=== PATIENT | male | born 1970 | race Hispanic/Latino ===

== ENCOUNTER 2024-08-28 12:34 | Emergency (ER) | payer SELFPAY ==
[~2024-08-28] VITALS: Ht 167.6 cm; Wt 72.6 kg
[2024-08-28] MEDS: ketOROlac 30MG VIAL (30MG/ML) IM ONE (13:27)
--- NOTE | 2024-08-28 13:40 | HMCIMG ---
ELBOW COMP 3+VWS RT HISTORY: Elbow pain COMPARISON: None TECHNIQUE: 3 images of the right elbow were obtained. FINDINGS: There is no acute displaced fracture or dislocation. There is soft tissue swelling. Degenerative changes are seen. IMPRESSION: 1. Findings as described above.
--- NOTE | 2024-08-28 13:47 | ERN ---
General Chief Complaint: Elbow Problem Stated Complaint: ELBOW SWELLING Time Seen by MD: 12:36 Source: patient History of Present Illness Initial Comments Patient is a 54-year-old gentleman coming in with right elbow pain. Patient states he noticed it a couple of days ago mild redness and warmth at the right elbow region. He states he does not remember hitting it. Allergies: Coded Allergies: No Known Drug Allergies (Unverified Allergy, Unknown, 08/28/24) Past Medical History Past Medical History: No Pertinent History Past Surgical History: None ROS Dictation CONSTITUTIONAL: No chills, no fever, no weakness, no diaphoresis, no malaise. HEAD/FACE: No signs of trauma. EENT: No eye pain, no blurred vision, no tearing, no double vision, no ear pain, no ear discharge, no nose pain, no nasal congestion, no throat pain, no throat swelling, no mouth pain. RESPIRATORY: No cough, no orthopnea, no SOB, no stridor, no wheezing. CARDIOVASCULAR: No chest pain, no edema, no palpitations, no syncope. GASTROINTESTINAL/ABDOMINAL: No abdominal pain, no constipation, no diarrhea, no nausea, no vomiting. GENITOURINARY: No abnormal discharge, no dysuria, no frequent urination, no hematuria. No complaints of pain in the genitals. MUSCULOSKELETAL: No back pain, no gout, no joint pain, no joint swelling, no muscle pain, no muscle stiffness, no neck pain. INTEGUMENTARY: No change in color, no change in hair/nails, no dryness, no lesion, no lumps, no rash. NEUROLOGICAL/PSYCH: No anxiety, not depressed, no emotional problem, no headache, no numbness, no pre-existing deficit, no history of seizures, no tremors, no weakness. HEMATOLOGIC/LYMPHATIC: Not anemic, no history of blood clots, no apparent bleeding, no bruising, glands not swollen. All Systems Negative, Except as Noted. Physical Exam Physical Exam Dictation VITAL SIGNS: Reviewed. GENERAL APPEARANCE: Alert, oriented x3, no acute distress, obese. HEAD AND FACE: Non-traumatic. EYES: PERRL, pink conjunctivas, eyelid no trauma, anterior chamber clear. EARS: Pinnas intact and no signs of trauma or erythema. Ear canals clear and no discharge. TMs no erythema. NOSE: No discharge, no bleeding. OROPHARYNX: Mouth normal, teeth no caries, tongue pink. Pharynx clear, no erythema. Tonsils no exudates, no abscesses noted. Mucous membrane moist. NECK: Supple, non-tender, no thyromegaly, no masses, no JVD, no bruits. BREAST: Deferred. CHEST: No tenderness, no crepitus, no paradoxical movement, no retractions. LUNGS: Clear, well-ventilated, symmetric, no rales, no wheezing, no rhonchi, no stridor, good breath sounds bilaterally. HEART: Regular rate, regular rhythm, no murmur, no gallops. VASCULAR: No peripheral edema. ABDOMEN: Soft, positive bowel sounds, nondistended, no guarding, nontender, no rebound, no masses no hepatomegaly, no splenomegaly, no Weeks's sign, no hernias. RECTAL: Deferred. GENITAL: Deferred. NEUROLOGICAL: Normal speech, gross motor function intact, gross sensory function intact. MUSCULOSKELETAL: Neck nontender, full range of motion, back nontender, full range of motion. EXTREMITIES: Nontender, full range of motion. SKIN: Color pink, dry, no turgor, no rash, no lacerations, no abrasions, no contusions. LYMPHATICS: Deferred. Results Laboratory and Microbiology Labs Reviewed?: Yes EKG/XRAY/US/CT/MRI X-RAY Comment [id number] [address] IMAGING REPORT Signed PATIENT: PRICILLA TAVERAS MR#: [id number] : 1970 SEX: M AGE: 54 LOCATION: [facility] ORDER [id number] STATUS: [facility] REPORT#: [id number] SERVICE 1256 REASON: elbow pain ORDERING PHYSICIAN: MADISYN JEROME MD PROCEDURE: ELB3VW RT - ELBOW COMP 3+VWS RT ELBOW COMP 3+VWS RT HISTORY: Elbow pain COMPARISON: None TECHNIQUE: 3 images of the right elbow were obtained. FINDINGS: There is no acute displaced fracture or dislocation. There is soft tissue swelling. Degenerative changes are seen. IMPRESSION: 1. Findings as described above. DICTATED BY: TAMELA RUTH MD DATE: 08/28/24 1334 ELECTRONICALLY SIGNED BY: TAMELA RUTH MD DATE: 08/28/24 1340 MDM MDM: Differential diagnosis: Fracture of the elbow, all the current fracture, dislocated elbow, erythema, cellulitis, Rationale: Tests considered and ordered secondary to shared decision making include: Previous outside records reviewed: Old ER visits. Risk of complication and/or morbidity or mortality of patient management: None Medications-Per medication reconciliation Patient is a 54-year-old gentleman coming in to be evaluated for right elbow pain. X-ray did not disclose acute findings. On physical exam mild erythema tenderness to palpation of the elbow. Sling will be placed I did advised him appropriate follow up with PCP anti-inflammatories as well as antibiotics will be given. Antibiotics will cover for a possible cellulitis. ED Course Orders Procedure Category Date Status Time Elbow Comp 3+Vws Rt RAD 08/28/24 Resulted 12:56 Ketorolac PHA 08/28/24 Complete Tromethamine 30mg/Ml 13:00 Current Medications Medications (Trade) Dose Ordered Sig/Bella Route PRN Reason Start Time Stop Time Status Last Admin Dose Admin Ketorolac Tromethamine (toRADol) 30 mg ONCE ONCE IM 08/28/24 13:00 08/28/24 13:01 DC 08/28/24 13:27 Vital Signs Date Time Temp Pulse Resp B/P (MAP) Pulse Ox O2 Delivery O2 Flow Rate FiO2 08/28/24 12:42 98.8 80 18 144/78 98 Room Air 0 DX & DISP Disposition: Discharge Departure Impression: Primary Impression: Elbow joint effusion Additional Impression: Elbow strain Condition: Stable Scripts Cephalexin Monohydrate (Keflex) 500 Mg Cap 1 CAP PO BID for 7 Days, #14 CAP 0 Refills Prov: MADISYN JEROME MD 08/28/24 Naproxen (Naproxen) 500 Mg Tablet 1 TAB PO BID for pain for 7 Days, #14 TAB 0 Refills Prov: MADISYN JEROME MD 08/28/24 Additional Instructions: FOLLOW-UP WITH PRIMARY CARE PROVIDER IN 1 TO 2 DAYS. TAKE MEDICATIONS DIRECTED HERE IN THE EMERGENCY ROOM. OKAY TO CONTINUE HOME MEDICATIONS UNLESS OTHERWISE DISCUSSED DURING YOUR VISIT IN THE EMERGENCY ROOM TODAY. RETURN TO YOUR NEAREST EMERGENCY ROOM IF SYMPTOMS WORSEN OR IF THERE IS NO IMPROVEMENT. CALL 911 IF YOU NEED IMMEDIATE ASSISTANCE. TAKE TYLENOL [id number] NEEDED AND IF NO CONTRAINDICATIONS ARE PRESENT. INCREASE ORAL HYDRATION. A WOUND CULTURE OR URINE CULTURE WAS ORDERED HERE IN THE EMERGENCY ROOM DEPARTMENT PLEASE FOLLOW-UP WITH PRIMARY CARE PROVIDER AND ADVISE THEM TO GET REPEAT PORTS FROM OUR FACILITY. IF YOU HAD ANY REJI WRAP/SPLINTS THAT WERE APPLIED HERE, PLEASE DO NOT REMOVE THEM UNTIL YOU SEE YOUR PRIMARY CARE OR SPECIALTY. Referrals: Referrals: SELF,REFERRAL (PCP) FAVIAN MENG MD, LUIS A MD Time of Disposition: 14:46 MADISYN JEROME MD August 28, 2024 13:47
[2024-08-28 14:45] VITALS: BP 131/75; PULSE 82; RESP 18; TEMP 98.8; O2SAT 98
[2024-08-28] MEDS ORDERED: CEPH500B PO (14:47)
[2024-08-28] MEDS ORDERED: NAPR-1194 PO (14:47)
== END 2024-08-28 18:42 | disposition home or self-care (01) ==
LOC: EDH 12:34
DX: S66.811A Strain of other specified muscles, fascia and tendons at wrist and hand level, right hand, initial encounter (principal); M25.421 Effusion, right elbow; X58.XXXA Exposure to other specified factors, initial encounter; Y93.89 Activity, other specified; Y92.89 Other specified places as the place of occurrence of the external cause; Y99.8 Other external cause status
CPT/HCPCS: 99283; 73080; 96372; J1885; 29105